=== PATIENT | female | born 1940 | race African-American/Black ===

== ENCOUNTER 2019-07-27 08:08 | Emergency (ER) | payer MEDICARE, OTHER ==
[~2019-07-27] VITALS: Ht 157.5 cm; Wt 76.0 kg
[2019-07-27] MEDS ORDERED: SODIUM CHLORIDE 0.9% 1,000 ML IV ONE (08:35)
[2019-07-27] MEDS ORDERED: FAMOTIDINE 20MG/2ML VIAL IV STA (08:35)
[2019-07-27] MEDS ORDERED: KETOROLAC 30MG/ML VIAL IV STA (08:35)
[2019-07-27] MEDS ORDERED: ONDANSETRON HCL 4MG/2ML INJ IV STA (08:35)
[2019-07-27 08:53] LABS: MEAN CORPUSCULAR HEMOGLOBIN 31.4 pg (28.0-32.0); MEAN CORPUSCULAR VOLUME 92.1 fL (81.0-99.0); MEAN PLATELET VOLUME 8.2 fl (7.4-10.4); PLATELET 247 x1000/uL (130-400); RED BLOOD CELL COUNT 4.78 mill/uL (4.2-5.4); RED CELL DISTRIBUTION WIDTH 13.8 % (11.6-14.6)
[2019-07-27 09:02] LABS: CHLORIDE 107 mEq/L (98-107)
[2019-07-27 09:04] LABS: PROTHROMBIN TIME 10.6 sec (9.6-11.0)
[2019-07-27] MEDS ORDERED: ACETAMINOPHEN 325MG TABLET PO ONE (09:45)
[2019-07-27] MEDS ORDERED: ONDANSETRON 4MG/5ML UDC PO ONE (09:45)
[2019-07-27] MEDS ORDERED: FAMOTIDINE 20MG TABLET PO ONE (09:45)
[2019-07-27 10:15] LABS: PLATELET ESTIMATE NORMAL
[2019-07-27] MEDS ORDERED: OXYCODONE HCL/ACETAMINOPHEN 5/325MG TABLET PO ONE (11:15)
[2019-07-27] MEDS ORDERED: MORPHINE SULFATE 4 MG/ML CPJ (NOT FOR IM USE) IV ONE (12:45)
[2019-07-27 18:55] VITALS: BP 112/68
== END 2019-07-27 19:23 | disposition short-term general hospital (02) ==
LOC: ER 08:08 → CANBEDREQ 17:05 → ER 19:23
DX: R10.13 Epigastric pain (principal); Z88.5 Allergy status to narcotic agent
CPT/HCPCS: 36415; 71045; 74176; 80053; 83690; 84484; 85025; 85610; 93005; 99285; J7030